=== PATIENT | female | born 1950 | race Caucasian/White ===

== ENCOUNTER → 2023-09-07 09:13 | Outpatient (REF) | payer MEDICARE, OTHER, SELFPAY | LOC: HWRAD 09:13 | PROVIDERS: ATTENDING PHYSICIAN Obstetrics & Gynecology; FAMILY PHYSICIAN Family Medicine | DX: Z12.31 Encounter for screening mammogram for malignant neoplasm of breast (principal); M85.89 Other specified disorders of bone density and structure, multiple sites | CPT/HCPCS: 77063; 77067; 77080 ==

== ENCOUNTER 2023-09-26 05:30 | Emergency (ER) | payer MEDICARE, OTHER, SELFPAY ==
[2023-09-26 05:35] VITALS: BP 182/94
--- NOTE | 2023-09-26 06:21 | ED.GENMED ---
History of Present Illness
General
Chief Complaint: Urinary Symptoms
Source: patient
Exam Limitations: none
Time Seen by Provider: 09/26/23 06:15
Travel History
Have you had any contact with someone who has COVID-19?: No
Do you have any symptoms of coronavirus? Fever > 100 degrees, chills, cough, shortness of breath, sore throat, loss of taste or smell, muscle aches, or headache?: No
History of Present Illness
History of Present Illness:
See MDM
Past History
Past History
ED Past Medical History: HTN, Hypercholesterolemia and Psychiatric (anxiety)
ED Past Surgical History: Cholecystectomy and Gynecological (hyster)
Social History
Tobacco: Non-smoker
Alcohol: None
Personal:
Living: with family
Family History
Family History: Hypertension
Phy Exam
Physical Exam
Physical Exam:
See MDM
Course
Orders/Labs/Results
Orders:
Orders
09/26/23 06:11
Urinalysis Reflex To Culture Urgent
Date Specimen was Collected: 09/26/23
Time Specimen was Collected: 05:53
Urine Microscopic Reflex Cult Urgent
Urine Culture Urgent
JANE Source: U
Specimen Description:
Date Specimen was Collected: 09/26/23
Time Specimen was Collected: 05:53
09/26/23 06:47
Ciprofloxacin HCl [Cipro] 500 mg PO ONCE ONE
Abnormal Lab Results
09/26/23
06:11
Ur Occult Blood Reflex 4+ A
(Negative)
Leukocyte Esterase Rfl 2+ A
(Negative)
Urine Albumin (Reflex) 1+ A
(Neg - Trace)
Vital Signs
Initial and Last Documented VS:
Initial Vital Signs
Temp Pulse Resp BP Pulse Ox
97.8 F 69 19 182/94 98
09/26/23 05:35 09/26/23 05:35 09/26/23 05:35 09/26/23 05:35 09/26/23 05:35
Last Documented Vital Signs
Temp Pulse Resp BP Pulse Ox
97.8 F 69 19 182/94 98
09/26/23 05:35 09/26/23 05:35 09/26/23 05:35 09/26/23 05:35 09/26/23 05:35
MDM/Problems Addressed
Differential Diagnosis Includes:
HPI and MDM Narrative:
73-year-old female presenting with increased urinary frequency and burning since yesterday. She believes she has a urinary tract infection
Patient denies abdominal pain or fevers
She has tried Azo [id number] to help with symptoms but they have persisted
Physical exam
General: Well appearing and non-toxic
HEENT: protecting airway
Neck: appears supple
CV: No evidence of cyanosis
Resp: No accessory muscle use
Abd: Non-distended. Soft and nontender
Extremities: No deformities
Neuro: alert
Psych: Normal affect
Skin: Intact
Problems Addressed including Acute and Chronic Conditions affecting care:
1. Increased urinary frequency
Acuity: acute
Prognosis: stable
Details: Will obtain urinalysis looking for evidence of UTI urinary tract
Updates
Given the hematuria and leuk esterase, will start ciprofloxacin. Discussed follow-up with PCP for repeat urinalysis to confirm resolution of hematuria
Differential Diagnosis (but not limited to): urinary tract infection, interstitial cystitis
Drug therapy (if applicable): OTC meds, please see d/c instruction regarding Rx drugs
Amount and/or Complexity of Data Reviewed
Clinical info obtained from: Patient
External data reviewed: N/A
Labs I independently reviewed (but not limited to): Urinalysis
Radiology: N/A
Pulse Ox: not hypoxic
EKG independently reviewed: N/A
Band Tacker: N/A
Critical Care: N/A
Risk of Complication:
Social Determinants of health: Good social support
Discussed with other providers: N/A
Escalation of Care includes Admit/Obs: After being observed in the Emergency Department, pt stable for discharge.
Occasional wrong word or 'sound a like' substitutions may have occurred due to the inherent limitations of voice recognition software. Read the chart carefully and recognize, using context, where substitutions have occurred.
*Critical Care Note
Total Time (30-74mins, 75-104mins- exclusive of procedures): Not Applicable
ED Attending Note
-
Portions of this chart may have been created with voice recognition software.� Occasional wrong word or��sound alike� substitutions may have occurred due to the inherent limitations of voice recognition software.
Discharge Plan
Departure
Patient Disposition: Home (Routine Discharge)
Date of Disposition: 09/26/23
Time of Disposition: 06:50
Patient with high blood pressure during this ER visit?: Yes
Discharge Problem:
Hematuria, Acute UTI
Instructions: Urinary Tract Infection, Adult (DC), Blood in the Urine (Hematuria), Adult (DC), BLOOD PRESSURE
Prescriptions:
New
ciprofloxacin HCl 500 mg Tablet
500 mg PO BID Qty: 10 0RF
No Action
cholecalciferol (vitamin D3) 1,000 UNITS tablet
2,000 units PO DAILY Qty: 28 0RF
losartan 50 mg Tablet
50 mg PO BID
famotidine [Pepcid AC] 10 mg Tablet
10 mg PO PRN PRN (Reason: GERD)
amlodipine 5 mg Tablet
5 mg PO 1700
Rx Instructions:
at 1700 daily
phenazopyridine 95 mg Tablet
95 mg PO BID
simvastatin 5 mg Tablet
5 mg PO HS
nystatin [Nyamyc] 100,000 unit/gram Powder
1 applic TOPICAL BID
clonazepam 0.125 mg Tablet,Disintegrating
0.125 mg PO PRN PRN (Reason: sleep)
Saccharomyces boulardii [Florastor] 250 mg Capsule
250 mg PO DAILY
coenzyme Q10 [Co Q-10] 200 mg Capsule
200 mg PO DAILY
hydrochlorothiazide 12.5 mg Tablet
12.5 mg PO DAILY
icosapent ethyl [Vascepa] 1 gram Capsule
1 g PO DAILY
Kids Multivitamin Complete 18 mg iron Tablet,Chewable
1 tab PO DAILY
famotidine 20 MG tablet
20 mg PO PRN PRN (Reason: GERD)
Rx Instructions:
Take 20 mg twice a day for 14 days
Renew Life Probiotic
1 cap PO HS
Ultimate Eye Support
1 cap PO DAILY
acetaminophen 325 mg Tablet
650 mg PO Q4HPRN PRN (Reason: mild pain) Qty: 60 0RF
docusate sodium 100 mg Capsule
100 mg PO BID Qty: 60 0RF
simethicone 80 mg Tablet,Chewable
80 mg PO Q6HPRN PRN (Reason: gas distention) Qty: 20 0RF
oxycodone 5 mg Tablet
5 mg PO Q4HPRN PRN (Reason: severe pain when tolerating PO) Qty: 10 0RF
Referrals:
Yesenia Pleitez DO [Family Provider] -
Activity Restrictions/Additional Instructions:
Please return for any worsening symptoms.
You may return at any time if you have further concerns.
Please follow up with your doctor at the first available appointment, preferably this week. Please have your urine rechecked after symptoms resolved to reassess the blood in your urine.
Thank you for choosing [facility].
Interventions
Interventions:
*Risk Screen - Suicide Last Done: 09/26/23 05:35
*General Assessment Last Done: 09/26/23 05:35
*Neglect/Abuse Screening Last Done: 09/26/23 05:35
*ED COVID-19 Vaccine History Last Done: 09/26/23 05:35
Discharge Date and Time
Print Language: WELSH
[2023-09-26 06:37] LABS: Urine Albumin 1+ (Neg - Trace); Urine Bilirubin Negative (Negative); Urine Character Slightly Cloudy (Clear); Urine Glucose Negative (Negative); Urine Ketone Negative (Negative); Urine Leukocyte 2+ (Negative); Urine Nitrite Negative (Negative); Urine Occult Blood 4+ (Negative); Urine Urobilinogen Negative (Neg - 1+); Urine pH 6.5 (5.0-9.0)
[2023-09-26 06:42] LABS: Urine Color Pink
[2023-09-26] MEDS: CIPRO 500 MG PO (06:54)
[2023-09-26 07:52] LABS: Urine White Cell 90-100 /HPF (0-5)
[2023-09-26 07:53] LABS: Urine Bacteria Few (Negative)
== END 2023-09-26 06:56 | disposition home or self-care (01) ==
LOC: EMR 05:30
PROVIDERS: Emergency Medicine; EMERGENCY PHYSICIAN Student in an Organized Health Care Education/Training Program; FAMILY PHYSICIAN Family Medicine
DX: N39.0 Urinary tract infection, site not specified (principal); R31.9 Hematuria, unspecified; I10 Essential (primary) hypertension; E78.00 Pure hypercholesterolemia, unspecified; F41.9 Anxiety disorder, unspecified; Z82.49 Family history of ischemic heart disease and other diseases of the circulatory system; Z90.49 Acquired absence of other specified parts of digestive tract
CPT/HCPCS: 99282; 81003; 81015; 87086

== ENCOUNTER 2023-09-28 16:34 | Emergency (ER) | payer MEDICARE, OTHER, SELFPAY ==
[2023-09-28 16:42] VITALS: BP 156/99
[2023-09-28 17:04] LABS: % Basophils 0.9 % (0-2); % Eosinophils 1.1 % (0-6); % Immature Granulocytes 0.5 % (0-0.5); % Lymphocytes 21.4 % (20.5-51.1); % Monocytes 9.8 % (1.7-9.3); % Neutrophils 66.3 % (42.2-75.2); Absolute Basophils 0.1 10^3/uL (0-0.2); Absolute Eosinophils 0.1 10^3/uL (0-0.7); Absolute Lymphocytes 1.2 10^3/uL (1.2-3.4); Absolute Monocytes 0.6 10^3/uL (0.1-0.6); Absolute Neutrophils 3.8 10^3/uL (1.4-6.5); Hematocrit 39.7 % (37.0-47.0); Hemoglobin 13.9 g/dL (12.0-16.0); Mean Corpuscular Hgb 30.3 pg (27.0-31.0); Mean Corpuscular Volume 86.7 fL (81.0-99.0); Mean Platelet Volume 9.3 fL (7.4-10.4); Nucleated Red Blood Cells % 0 %; Platelet Count 233 10^3/uL (130-400); Red Blood Cell Count 4.58 10^6/uL (4.20-5.40); Red Cell Dist. Width 12.7 % (11.5-14.5); White Blood Cell Count 5.7 10^3/uL (4.8-10.8)
[2023-09-28 17:42] LABS: ALT (SGPT) 33 U/L (0-35); AST (SGOT) 36 U/L (14-36); Albumin 4.3 g/dl (3.5-5.0); Alkaline Phosphatase 83 U/L (38-126); Blood Urea Nitrogen 16 mg/dl (7-17); Calcium 10.4 mg/dl (8.4-10.2); Carbon Dioxide 31 mmol/L (22-30); Chloride 100 mmol/L (98-107); Glucose 126 mg/dl (70-99); Potassium 4.7 mmol/L (3.5-5.1); Sodium 137 mmol/L (135-145); Total Bilirubin 0.5 mg/dl (0.2-1.3); Total Protein 6.7 g/dl (6.3-8.2); eGFR > 60.00
--- NOTE | 2023-09-28 18:54 | ED.GENMED ---
History of Present Illness
General
Chief Complaint: Esophageal Problem
Source: patient
Time Seen by Provider: 09/28/23 18:39
Travel History
Have you had any contact with someone who has COVID-19?: No
Do you have any symptoms of coronavirus? Fever > 100 degrees, chills, cough, shortness of breath, sore throat, loss of taste or smell, muscle aches, or headache?: No
History of Present Illness
History of Present Illness:
73-year-old female presents to the emergency room complaining of food impaction. Patient was eating a carrot when it felt like it became stuck. She tried to wash down with seltzer water which came back up. She became quite anxious that she might
choke. She called her daughter who came and picked her up and brought her to mention. In the interim she did regurgitate pieces of carrot. Currently she is able to tolerate her own secretions. She drank some water without difficulty. She does
continue to have a foreign body sensation in her throat. She had 1 episode of food becoming stuck several years ago. She does have history of heartburn. She does take Nexium. She has not been seen by a imager in the past.
Past History
Past History
ED Past Medical History: HTN, Hypercholesterolemia and Psychiatric (anxiety)
ED Past Surgical History: Cholecystectomy and Gynecological (hyster)
Social History
Tobacco: Non-smoker
Alcohol: None
Personal:
Living: with family
Family History
Family History: Hypertension
Phy Exam
Physical Exam
Physical Exam:
General: Awake, Alert, Oriented X3. No acute distress.
Vitals: unremarkable
Head: Atraumatic
Eyes: Pupils equal, EOMI
Throat: Airway intact, no exudates
Neck: Trachea midline
Lungs: Clear and equal b/l
Heart: Regular rate, no murmurs
Abd: Soft, Nontender, No pulsatile mass
Neuro: Nonfocal
Skin: Warm, dry, no rash
Extremities: pulses equal b/l, no edema
Course
Orders/Labs/Results
Orders:
Orders
09/28/23 16:57
CMP [Comprehensive Metabolic Panel] Urgent
Complete Blood Count/With Diff Urgent
09/28/23 18:54
Mag Hydrox/Al Hydrox/Simeth [Maalox] 30 ml Phenobarb/Hyoscy/Atropine/Scop [] 10 ml PO NOW
09/28/23 19:00
Mag Hydrox/Al Hydrox/Simeth [Maalox] 30 ml .ROUTE .STK-MED ONE
Phenobarb/Hyoscy/Atropine/Scop [] 10 ml .ROUTE .STK-MED ONE
Abnormal Lab Results
09/28/23
16:57
Monocytes % 9.8 H %
(1.7-9.3)
Carbon Dioxide 31 H mmol/L
(22-30)
Glucose 126 H mg/dl
(70-99)
Calcium 10.4 H mg/dl
(8.4-10.2)
09/28/23 16:57
09/28/23 16:57
Vital Signs
Initial and Last Documented VS:
Initial Vital Signs
Temp Pulse Resp BP Pulse Ox
98.3 F 63 20 156/99 98
09/28/23 16:42 09/28/23 16:42 09/28/23 16:42 09/28/23 16:42 09/28/23 16:42
Last Documented Vital Signs
Temp Pulse Resp BP Pulse Ox
98.3 F 63 20 156/99 98
09/28/23 16:42 09/28/23 16:42 09/28/23 16:42 09/28/23 16:42 09/28/23 16:42
MDM/Problems Addressed
Differential Diagnosis Includes:
Esophageal food impaction, esophageal abrasion
MDM/Problems Addressed:
Patient likely had a complete esophageal obstruction initially. She is evidently cleared this. She is now tolerating her secretions and liquid intake. She is disturbed by the foreign body sensation. Will treat this with a dose of Maalox and
.
*Pulse Oximetry
Patient hypoxic: no
*Critical Care Note
Total Time (30-74mins, 75-104mins- exclusive of procedures): Not Applicable
ED Attending Note
-
Portions of this chart may have been created with voice recognition software.� Occasional wrong word or��sound alike� substitutions may have occurred due to the inherent limitations of voice recognition software.
Discharge Plan
Departure
Patient Disposition: Home (Routine Discharge)
Date of Disposition: 09/28/23
Time of Disposition: 19:32
Patient with high blood pressure during this ER visit?: Yes
Condition: Good
Discharge Problem:
Obstruction of esophagus due to food impaction
Instructions: Food Obstruction
Prescriptions:
No Action
cholecalciferol (vitamin D3) 1,000 UNITS tablet
2,000 units PO DAILY Qty: 28 0RF
losartan 50 mg Tablet
50 mg PO BID
famotidine [Pepcid AC] 10 mg Tablet
10 mg PO PRN PRN (Reason: GERD)
amlodipine 5 mg Tablet
5 mg PO 1700
Rx Instructions:
at 1700 daily
phenazopyridine 95 mg Tablet
95 mg PO BID
simvastatin 5 mg Tablet
5 mg PO HS
nystatin [Nyamyc] 100,000 unit/gram Powder
1 applic TOPICAL BID
clonazepam 0.125 mg Tablet,Disintegrating
0.125 mg PO PRN PRN (Reason: sleep)
Saccharomyces boulardii [Florastor] 250 mg Capsule
250 mg PO DAILY
coenzyme Q10 [Co Q-10] 200 mg Capsule
200 mg PO DAILY
hydrochlorothiazide 12.5 mg Tablet
12.5 mg PO DAILY
icosapent ethyl [Vascepa] 1 gram Capsule
1 g PO DAILY
Kids Multivitamin Complete 18 mg iron Tablet,Chewable
1 tab PO DAILY
famotidine 20 MG tablet
20 mg PO PRN PRN (Reason: GERD)
Rx Instructions:
Take 20 mg twice a day for 14 days
Renew Life Probiotic
1 cap PO HS
Ultimate Eye Support
1 cap PO DAILY
acetaminophen 325 mg Tablet
650 mg PO Q4HPRN PRN (Reason: mild pain) Qty: 60 0RF
docusate sodium 100 mg Capsule
100 mg PO BID Qty: 60 0RF
simethicone 80 mg Tablet,Chewable
80 mg PO Q6HPRN PRN (Reason: gas distention) Qty: 20 0RF
oxycodone 5 mg Tablet
5 mg PO Q4HPRN PRN (Reason: severe pain when tolerating PO) Qty: 10 0RF
ciprofloxacin HCl 500 mg Tablet
500 mg PO BID Qty: 10 0RF
Referrals:
Lorraine Rust MD [Active] -
Interventions
Interventions:
*Risk Screen - Suicide Last Done: 09/28/23 16:42
*General Assessment Last Done: 09/28/23 16:42
*Neglect/Abuse Screening Last Done: 09/28/23 16:42
ED- Fall Risk Assessment Last Done: 09/28/23 19:27
*ED COVID-19 Vaccine History Last Done: 09/28/23 20:00
*Nursing Disposition Last Done: 09/28/23 20:00
EV-Bmlcqu-Ogzyqgmqhz Assessment Last Done: 09/28/23 19:27
ED-EENT Assessment Last Done: 09/28/23 19:27
Discharge Date and Time
Discharge Date/Time: 09/28/23 20:28
Print Language: HUNGARIAN
[2023-09-28] MEDS: MAALOX 40 PO (19:03)
== END 2023-09-28 20:28 | disposition home or self-care (01) ==
LOC: EMR 16:34
PROVIDERS: Student in an Organized Health Care Education/Training Program; EMERGENCY PHYSICIAN Emergency Medicine; FAMILY PHYSICIAN Family Medicine
DX: K22.2 Esophageal obstruction (principal); K30 Functional dyspepsia; I10 Essential (primary) hypertension; E78.00 Pure hypercholesterolemia, unspecified; F41.9 Anxiety disorder, unspecified; Z79.899 Other long term (current) drug therapy; Z90.49 Acquired absence of other specified parts of digestive tract; Z88.0 Allergy status to penicillin; Z88.8 Allergy status to other drugs, medicaments and biological substances
CPT/HCPCS: 99283; 80053; 85025

== ENCOUNTER 2024-01-13 17:58 | Emergency (ER) | payer MEDICARE, OTHER, SELFPAY ==
[2024-01-13 18:05] VITALS: BP 151/81
--- NOTE | 2024-01-13 19:31 | ED.GENMED ---
History of Present Illness
General
Chief Complaint: Fall
Source: patient
Time Seen by Provider: 01/13/24 18:43
History of Present Illness
History of Present Illness:
73-year-old female presents emergency department after suffering a fall earlier today at approximately 2 PM. As per daughters who are at bedside, patient has a history of balance 'problems'. She was reportedly opening a door for her and
lost her balance, falling backwards onto the walker and then onto an air purifier before hitting the ground. She takes aspirin, otherwise does not take antiplatelet/anticoagulation agents. There was no reported loss of consciousness. However, she
insisted on laying on the ground and not getting up for at least an hour or 2 due to pain that she reported in her 'tailbone' and then less so in the neck area. Medics were called. Patient was reporting pain upon transport onto the gurney. Here
in the emergency department, the patient denies any pain. She denies headache, neck pain, numbness, tingling, focal weakness, chest pain, shortness of breath, change in vision, or other complaints.
Past History
Past History
ED Past Medical History: HTN, Hypercholesterolemia and Psychiatric (anxiety)
ED Past Surgical History: Cholecystectomy and Gynecological (hyster)
Social History
Tobacco: Non-smoker
Alcohol: None
Personal:
Living: with family
Family History
Family History: Hypertension
Phy Exam
Physical Exam
Physical Exam:
GENERAL: Alert , in no apparent distress
EYE: pupils equal and reactive,EOMI, no nystagmus, no photophobia
NECK: Supple, no significant adenopathy, no ttp midine.
ENT: o/p clr, mmm, no signs head/facial inj, no battl,e no raccon, etc.
CARDIAC: Regular rate and rhythm .
LUNGS: Clear breath sounds bilaterally, no acute respiratory distress, no wheezes/rales/rhonchi, cw without bruising
ABDOMEN: Soft, without focal tenderness, no r/g, no cvat
NEUROLOGICAL: Alert and oriented to person,place but not time, can identify daughters at bedside by name, no focal neuro deficits
SKIN: Warm and dry, skin intact.
MUSCULOSKELETAL: No edema, well perfused. No ttp of pelvis/ue/le. FROM of hips without pain.
PSYCH: Normal and appropriate interaction.
BACK: nontender throughout to palpation, no bruisinh
Course
Orders/Labs/Results
Orders:
Orders
01/13/24 18:08
CR Facial Bones Comp Min 3 Vw* Urgent
Comment:
Reason For Exam: injury
Vital Signs
Initial and Last Documented VS:
Initial Vital Signs
Temp Pulse Resp BP Pulse Ox
98.2 F 74 18 151/81 96
01/13/24 18:05 01/13/24 18:05 01/13/24 18:05 01/13/24 18:05 01/13/24 18:05
Last Documented Vital Signs
Temp Pulse Resp BP Pulse Ox
98.2 F 74 18 151/81 96
01/13/24 18:05 01/13/24 18:05 01/13/24 18:05 01/13/24 18:05 01/13/24 18:05
Update Note
Update Note:
Patient presents to the Emergency Department with ____fall
Number and Complexity of Problems Addressed at the Encounter
� Chronic conditions affecting care:
� Acute Exacerbation and/or Progression of Chronic Illness:
� Differential Diagnosis includes:but not limited to coccyx fx or bruise, cervical fx, intracranial bleed/subdural, etc. etc.
Amount and/or Complexity of Data to be Reviewed and Analyzed
� I performed an independent evaluation of and my interpretation is:
EKG:
CT:
Xrays:
Laboratory Studies:
Other:
� Review of other/old records reveals:
� Clinical information was obtained by an independent historian:marjorie Huang at bedside
� Prescriptions/Medications Considered but not given:
� Further testing considered but not performed:
Risk of Complications and/or Morbidity or Mortality of Patient Management
� Social determinants of health affecting care:
� Discussion with other providers (PCP, Hospitalists, Consultants, etc):
� Escalation of care including admission/observation vs risk of discharge considered:
ED Attending Note
-
Portions of this chart may have been created with voice recognition software.� Occasional wrong word or��sound alike� substitutions may have occurred due to the inherent limitations of voice recognition software.
Discharge Plan
Departure
Prescriptions:
No Action
cholecalciferol (vitamin D3) 1,000 UNITS tablet
2,000 units PO DAILY Qty: 28 0RF
losartan 50 mg Tablet
50 mg PO BID
famotidine [Pepcid AC] 10 mg Tablet
10 mg PO PRN PRN (Reason: GERD)
amlodipine 5 mg Tablet
5 mg PO 1700
Rx Instructions:
at 1700 daily
phenazopyridine 95 mg Tablet
95 mg PO BID
simvastatin 5 mg Tablet
5 mg PO HS
nystatin [Nyamyc] 100,000 unit/gram Powder
1 applic TOPICAL BID
clonazepam 0.125 mg Tablet,Disintegrating
0.125 mg PO PRN PRN (Reason: sleep)
Saccharomyces boulardii [Florastor] 250 mg Capsule
250 mg PO DAILY
coenzyme Q10 [Co Q-10] 200 mg Capsule
200 mg PO DAILY
hydrochlorothiazide 12.5 mg Tablet
12.5 mg PO DAILY
icosapent ethyl [Vascepa] 1 gram Capsule
1 g PO DAILY
Kids Multivitamin Complete 18 mg iron Tablet,Chewable
1 tab PO DAILY
famotidine 20 MG tablet
20 mg PO PRN PRN (Reason: GERD)
Rx Instructions:
Take 20 mg twice a day for 14 days
Renew Life Probiotic
1 cap PO HS
Ultimate Eye Support
1 cap PO DAILY
acetaminophen 325 mg Tablet
650 mg PO Q4HPRN PRN (Reason: mild pain) Qty: 60 0RF
docusate sodium 100 mg Capsule
100 mg PO BID Qty: 60 0RF
simethicone 80 mg Tablet,Chewable
80 mg PO Q6HPRN PRN (Reason: gas distention) Qty: 20 0RF
oxycodone 5 mg Tablet
5 mg PO Q4HPRN PRN (Reason: severe pain when tolerating PO) Qty: 10 0RF
ciprofloxacin HCl 500 mg Tablet
500 mg PO BID Qty: 10 0RF
Referrals:
Yesenia Pleitez DO [Family Provider] -
Interventions
Interventions:
*Risk Screen - Suicide Last Done: 01/13/24 18:05
*General Assessment Last Done: 01/13/24 18:05
*Neglect/Abuse Screening Last Done: 01/13/24 18:33
ED- Fall Risk Assessment Last Done: 01/13/24 18:33
*ED COVID-19 Vaccine History Last Done: 01/13/24 18:33
ED-Musculoskeletal Assessment Last Done: 01/13/24 18:33
ED- Neurological Assessment Last Done: 01/13/24 18:33
ED-Skin Assessment Last Done: 01/13/24 18:33
Discharge Date and Time
Print Language: ANGOLAN
--- NOTE | 2024-01-13 19:46 | ED.GENMED ---
History of Present Illness
General
Chief Complaint: Fall
Source: patient and family
Time Seen by Provider: 01/13/24 18:43
History of Present Illness
History of Present Illness:
73 yr old female presents to ED s/p fall. She was walking in new shoes from trunk of car towards door and shoe got caught, causing her to fall against car with R side of body. She then fell to ground. No head inj, no loc, no headache. She reports
pain at R lat thigh area, and less so at jaw area. No neck pain/visula changes/cp/sob/abd pain/back pain/numb/tingling/weakness or other comlnts. Pt not on thineers.
Past History
Past History
ED Past Medical History: HTN, Hypercholesterolemia and Psychiatric (anxiety)
ED Past Surgical History: Cholecystectomy, Gynecological (hyster) and Orthopedic
Social History
Tobacco: Non-smoker
Alcohol: None
Drug: None
Personal:
Living: alone
Employment: Employed
Family History
Family History: Hypertension
Phy Exam
Physical Exam
Physical Exam:
GENERAL: Alert , in no apparent distress
EYE: pupils equal and reactive ,no photophobia,
NECK: Supple, no significant adenopathy.
ENT: o/p clr, mmm, no signs head/facial injury on exam, no trismus/drool
CARDIAC: Regular rate and rhythm .
LUNGS: Clear breath sounds bilaterally, no acute respiratory distress, no wheezes/rales/rhonchi
ABDOMEN: Soft, without focal tenderness, no r/g, no cvat
NEUROLOGICAL: Alert and oriented, no focal neuro deficits, gait nl
SKIN: Warm and dry, skin intact.
MUSCULOSKELETAL: No edema bu for st contusion noted R lat thigh without abrasion/bleed/bony ttp, well perfused.
PSYCH: Normal and appropriate interaction.
Course
Orders/Labs/Results
Orders:
Orders
01/13/24 18:08
CR Facial Bones Comp Min 3 Vw* Urgent
Comment:
Reason For Exam: injury
01/13/24 19:46
Hip, Right 2-3 Views [CR Hip - RT w/wo Pel 2-3 Vw*] Urgent
Comment:
Reason For Exam: fall
Include a pelvis x-ray?: Yes
01/13/24 19:56
Acetaminophen [Tylenol] 1,000 mg PO NOW STA
Vital Signs
Initial and Last Documented VS:
Initial Vital Signs
Temp Pulse Resp BP Pulse Ox
98.2 F 74 18 151/81 96
01/13/24 18:05 01/13/24 18:05 01/13/24 18:05 01/13/24 18:05 01/13/24 18:05
Last Documented Vital Signs
Temp Pulse Resp BP Pulse Ox
98.2 F 74 18 151/81 96
01/13/24 18:05 01/13/24 18:05 01/13/24 18:05 01/13/24 18:05 01/13/24 18:05
Update Note
Update Note:
Patient presents to the Emergency Department with ___FALL
Number and Complexity of Problems Addressed at the Encounter
� Chronic conditions affecting care:
� Acute Exacerbation and/or Progression of Chronic Illness:
� Differential Diagnosis includes:but not limited to hip fx, pelvic fx, contusion, jaw dislocation, etc
Amount and/or Complexity of Data to be Reviewed and Analyzed
� I performed an independent evaluation of and my interpretation is:
EKG:
CT:
Xrays: mandible and hip neg
Laboratory Studies:
Other:
� Review of other/old records reveals:
� Clinical information was obtained by an independent historian:daughter who is bedside
� Prescriptions/Medications Considered but not given:
� Further testing considered but not performed:
Risk of Complications and/or Morbidity or Mortality of Patient Management
� Social determinants of health affecting care:
� Discussion with other providers (PCP, Hospitalists, Consultants, etc):
� Escalation of care including admission/observation vs risk of discharge considered:pt ambulates without difficulty. given apap and ice here, aware of xrays neg, import of f/u and reasons to rted.
ED Attending Note
-
Portions of this chart may have been created with voice recognition software.� Occasional wrong word or��sound alike� substitutions may have occurred due to the inherent limitations of voice recognition software.
Discharge Plan
Departure
Patient Disposition: Home (Routine Discharge)
Date of Disposition: 01/13/24
Time of Disposition: 21:10
Patient with high blood pressure during this ER visit?: Yes
Condition: Good
Discharge Problem:
Contusion, Fall
Instructions: Contusion (DC), BLOOD PRESSURE
Prescriptions:
No Action
cholecalciferol (vitamin D3) 1,000 UNITS tablet
2,000 units PO DAILY Qty: 28 0RF
losartan 50 mg Tablet
50 mg PO BID
famotidine [Pepcid AC] 10 mg Tablet
10 mg PO PRN PRN (Reason: GERD)
amlodipine 5 mg Tablet
5 mg PO 1700
Rx Instructions:
at 1700 daily
phenazopyridine 95 mg Tablet
95 mg PO BID
simvastatin 5 mg Tablet
5 mg PO HS
nystatin [Nyamyc] 100,000 unit/gram Powder
1 applic TOPICAL BID
clonazepam 0.125 mg Tablet,Disintegrating
0.125 mg PO PRN PRN (Reason: sleep)
Saccharomyces boulardii [Florastor] 250 mg Capsule
250 mg PO DAILY
coenzyme Q10 [Co Q-10] 200 mg Capsule
200 mg PO DAILY
hydrochlorothiazide 12.5 mg Tablet
12.5 mg PO DAILY
icosapent ethyl [Vascepa] 1 gram Capsule
1 g PO DAILY
Kids Multivitamin Complete 18 mg iron Tablet,Chewable
1 tab PO DAILY
famotidine 20 MG tablet
20 mg PO PRN PRN (Reason: GERD)
Rx Instructions:
Take 20 mg twice a day for 14 days
Renew Life Probiotic
1 cap PO HS
Ultimate Eye Support
1 cap PO DAILY
acetaminophen 325 mg Tablet
650 mg PO Q4HPRN PRN (Reason: mild pain) Qty: 60 0RF
docusate sodium 100 mg Capsule
100 mg PO BID Qty: 60 0RF
simethicone 80 mg Tablet,Chewable
80 mg PO Q6HPRN PRN (Reason: gas distention) Qty: 20 0RF
oxycodone 5 mg Tablet
5 mg PO Q4HPRN PRN (Reason: severe pain when tolerating PO) Qty: 10 0RF
ciprofloxacin HCl 500 mg Tablet
500 mg PO BID Qty: 10 0RF
Referrals:
Yesenia Pleitez DO [Family Provider] - Next open appointment
Activity Restrictions/Additional Instructions:
IF YOU DEVELOP NECK PAIN, NUMBNESS, TINGLING, WEAKNESS, CHEST PAIN, TROUBLE BREATHING, ABDOMINAL PAIN, FEVER, SEVERE HEADACHE, VOMITING, OR OTHER WORRISOME SIGNS, GO TO THE ER IMMEDIATELY!
Interventions
Interventions:
*Risk Screen - Suicide Last Done: 01/13/24 18:05
*General Assessment Last Done: 01/13/24 18:05
*Neglect/Abuse Screening Last Done: 01/13/24 18:33
ED- Fall Risk Assessment Last Done: 01/13/24 18:33
*ED COVID-19 Vaccine History Last Done: 01/13/24 18:33
ED-Musculoskeletal Assessment Last Done: 01/13/24 18:33
ED- Neurological Assessment Last Done: 01/13/24 18:33
ED-Skin Assessment Last Done: 01/13/24 18:33
Discharge Date and Time
Print Language: IRANIAN
[2024-01-13 20:01] VITALS: BMI 27.5
[2024-01-13] MEDS: TYLENOL 1000 MG PO (20:02)
== END 2024-01-13 21:54 | disposition home or self-care (01) ==
LOC: EMR 17:58
PROVIDERS: EMERGENCY PHYSICIAN Emergency Medicine; FAMILY PHYSICIAN Family Medicine
DX: S70.11XA Contusion of right thigh, initial encounter (principal); R68.84 Jaw pain; W01.198A Fall on same level from slipping, tripping and stumbling with subsequent striking against other object, initial encounter; Y93.01 Activity, walking, marching and hiking; E78.00 Pure hypercholesterolemia, unspecified; I10 Essential (primary) hypertension; F41.9 Anxiety disorder, unspecified; Z90.49 Acquired absence of other specified parts of digestive tract
CPT/HCPCS: 99284; 70150; 73502

== ENCOUNTER 2024-07-02 03:05 | Emergency (ER) | payer MEDICARE, OTHER, SELFPAY ==
[2024-07-02 03:06] VITALS: BP 160/78
[2024-07-02 03:13] VITALS: BMI 27.1
[2024-07-02] MEDS: Pyridium 100 MG PO (03:39)
[2024-07-02 03:43] LABS: Urine Albumin 3+ (Neg - Trace); Urine Bilirubin Negative (Negative); Urine Character Cloudy (Clear); Urine Color Brown; Urine Glucose Negative (Negative); Urine Ketone 3+ (Negative); Urine Leukocyte 3+ (Negative); Urine Nitrite Negative (Negative); Urine Occult Blood 4+ (Negative); Urine Urobilinogen Negative (Neg - 1+)
--- NOTE | 2024-07-02 03:50 | ED.GENMED ---
History of Present Illness
General
Chief Complaint: Urinary Symptoms
Source: patient
Exam Limitations: none
Time Seen by Provider: 07/02/24 03:25
Nursing documentation reviewed up to this point in time: agreed with
History of Present Illness
History of Present Illness:
Pleasant 74-year-old female presents to the emergency department with dysuria. Her son, family doctor called and Macrobid. She picked up the antibiotics and had 1 dose. Tonight she had some blood-tinged urine so she called 911 and came in for
evaluation. Denies fever, chills, chest pain, or shortness of breath. She denies back pain or abdominal pain. She states that initially she did have some suprapubic pain, but that has since resolved. Denies any vaginal symptoms.
Past History
Past History
ED Past Medical History: HTN, Hypercholesterolemia and Psychiatric (anxiety)
ED Past Surgical History: Cholecystectomy, Gynecological (hyster) and Orthopedic
Social History
Tobacco: Non-smoker
Alcohol: None
Drug: None
Personal:
Living: alone
Employment: Employed
Family History
Family History: Hypertension
Phy Exam
General Physical Exam
General Presentation: well appearing and no apparent distress
General age: appears stated age
General Skin: warm and dry
General Habitus: elderly
General Mental: alert
Pulmonary Exam
Pulmonary Exam: lungs clear and no respiratory distress
Gastrointestinal Exam
Gastrointestinal Exam: normal bowel sounds, non tender, soft, no organomegaly, non distended and other (No CVA tenderness)
Neurological Exam
Neurological Exam: alert and oriented x3
Skin Exam
Skin Exam: normal color and warm/dry
Psychiatric Exam
Psychiatric Exam: normal mood/affect
Course
Orders/Labs/Results
Orders:
Orders
07/02/24 03:21
Urinalysis Reflex To Culture Urgent
Date Specimen was Collected: 07/02/24
Time Specimen was Collected: 03:15
Urine Microscopic Reflex Cult Urgent
Urine Culture Urgent
JANE Source: U
Specimen Description:
Date Specimen was Collected: 07/02/24
Time Specimen was Collected: 03:15
07/02/24 03:28
Phenazopyridine HCl [Pyridium] 100 mg PO NOW STA
Abnormal Lab Results
07/02/24
03:21
Urine Ketones 3+ A
(Negative)
Ur Occult Blood Reflex 4+ A
(Negative)
Leukocyte Esterase Rfl 3+ A
(Negative)
Urine RBC >100 A /HPF
(0-2)
Urine WBC (Reflex) >100 A /HPF
(0-5)
Urine Bacteria (Reflex) Many A
(Negative)
Urine Albumin (Reflex) 3+ A
(Neg - Trace)
Vital Signs
Initial and Last Documented VS:
Initial Vital Signs
Temp Pulse Resp BP Pulse Ox
98.2 F 72 16 160/78 97
07/02/24 03:06 07/02/24 03:06 07/02/24 03:06 07/02/24 03:06 07/02/24 03:06
Last Documented Vital Signs
Temp Pulse Resp BP Pulse Ox
98.2 F 72 16 160/78 97
07/02/24 03:06 07/02/24 03:06 07/02/24 03:06 07/02/24 03:06 07/02/24 03:06
*Critical Care Note
Total Time (30-74mins, 75-104mins- exclusive of procedures): Not Applicable
Update Note
Update Note:
Urinalysis shows UTI. Patient was started on Macrobid earlier today. There is no reason to think that Macrobid would not work. Urine cultures were ordered. Patient will get a dose of Pyridium. Follow-up with her family doctor.
ED Attending Note
-
Portions of this chart may have been created with voice recognition software.� Occasional wrong word or��sound alike� substitutions may have occurred due to the inherent limitations of voice recognition software.
Discharge Plan
Departure
Patient Disposition: Home (Routine Discharge)
Date of Disposition: 07/02/24
Time of Disposition: 04:24
Patient with high blood pressure during this ER visit?: Yes
Condition: Good
Discharge Problem:
Acute UTI, Hematuria
Instructions: Urinary Tract Infection, Adult (DC), Blood in the Urine (Hematuria), Adult (DC), BLOOD PRESSURE
Prescriptions:
New
phenazopyridine [Pyridium] 100 mg tablet
100 mg PO TID PRN (Reason: Pain) Qty: 7 0RF
No Action
cholecalciferol (vitamin D3) 1,000 UNITS tablet
2,000 units PO DAILY Qty: 28 0RF
losartan 50 mg Tablet
50 mg PO BID
famotidine [Pepcid AC] 10 mg Tablet
10 mg PO PRN PRN (Reason: GERD)
amlodipine 5 mg Tablet
5 mg PO 1700
Rx Instructions:
at 1700 daily
phenazopyridine 95 mg Tablet
95 mg PO BID
simvastatin 5 mg Tablet
5 mg PO HS
nystatin [Nyamyc] 100,000 unit/gram Powder
1 applic TOPICAL BID
clonazepam 0.125 mg Tablet,Disintegrating
0.125 mg PO PRN PRN (Reason: sleep)
Saccharomyces boulardii [Florastor] 250 mg Capsule
250 mg PO DAILY
coenzyme Q10 [Co Q-10] 200 mg Capsule
200 mg PO DAILY
hydrochlorothiazide 12.5 mg Tablet
12.5 mg PO DAILY
icosapent ethyl [Vascepa] 1 gram Capsule
1 g PO DAILY
Kids Multivitamin Complete 18 mg iron Tablet,Chewable
1 tab PO DAILY
famotidine 20 MG tablet
20 mg PO PRN PRN (Reason: GERD)
Rx Instructions:
Take 20 mg twice a day for 14 days
Renew Life Probiotic
1 cap PO HS
Ultimate Eye Support
1 cap PO DAILY
acetaminophen 325 mg Tablet
650 mg PO Q4HPRN PRN (Reason: mild pain) Qty: 60 0RF
docusate sodium 100 mg Capsule
100 mg PO BID Qty: 60 0RF
simethicone 80 mg Tablet,Chewable
80 mg PO Q6HPRN PRN (Reason: gas distention) Qty: 20 0RF
oxycodone 5 mg Tablet
5 mg PO Q4HPRN PRN (Reason: severe pain when tolerating PO) Qty: 10 0RF
ciprofloxacin HCl 500 mg Tablet
500 mg PO BID Qty: 10 0RF
Referrals:
Yesenia Pleitez DO [Family Provider] -
Activity Restrictions/Additional Instructions:
It was a pleasure meeting you and taking part in your care. We hope for your continued healing and wellness.
Please read discharge instructions in their entirety. However, they are for general education and may not describe your exact diagnosis at discharge. Information on your ER visit and medical conditions were discussed with you along with appropriate
follow up information...
If indicated, please take your medications as instructed and indicated on discharge paperwork.
Please schedule a follow up appointment as directed. Call to schedule an appointment
Please return to the emergency department with ANY change in, persisting, or worsening of symptoms. If any of your symptoms do not improve, or persist, or become more severe within 6-12 hours, please return to the emergency department for further
care.
Please return to the emergency department if you develop a headache, neck pain/stiffness, fever greater than 100.4F, chest pain, shortness of breath, persistent nausea, vomiting, slurred speech, difficulty walking, numbness/tingling, weakness, signs
of infection or any other symptoms that are worrisome to you.
If you have any questions or concerns please do not hesitate to call the Hospital at or E-mail me directly at [email or web address]
Interventions
Interventions:
*Risk Screen - Suicide Last Done: 07/02/24 03:06
*General Assessment Last Done: 07/02/24 03:06
*Neglect/Abuse Screening Last Done: 07/02/24 03:06
*ED COVID-19 Vaccine History Last Done: 07/02/24 03:06
ED-Female Genitourinary Assessment Last Done: 07/02/24 03:18
Discharge Date and Time
Print Language: GERMAN
[2024-07-02 04:21] LABS: Urine Bacteria Many (Negative); Urine Red Blood Cell >100 /HPF (0-2); Urine White Cell >100 /HPF (0-5)
[2024-07-02 04:35] VITALS: BP 125/80
--- NOTE | 2024-07-02 04:46 | EDRN ---
Pt was given discharge instructions by Dr Ayoub. Pt says she does not want to bother her daughter who lives in [place] to pick her up. Pt does not have [employer] apps on her phone and asked if someone could help her set it up so she can
arrange transport home. [address] assisting pt with this request.
== END 2024-07-02 05:00 | disposition home or self-care (01) ==
LOC: EMR 03:05
PROVIDERS: EMERGENCY PHYSICIAN Student in an Organized Health Care Education/Training Program; FAMILY PHYSICIAN Family Medicine
DX: N39.0 Urinary tract infection, site not specified (principal); R31.9 Hematuria, unspecified; I10 Essential (primary) hypertension; E78.00 Pure hypercholesterolemia, unspecified; F41.9 Anxiety disorder, unspecified; Z82.49 Family history of ischemic heart disease and other diseases of the circulatory system; Z90.49 Acquired absence of other specified parts of digestive tract
CPT/HCPCS: 99282; 81003; 81015; 87086

== ENCOUNTER → 2024-09-14 11:16 | Outpatient (REF) | payer MEDICARE, OTHER, SELFPAY | LOC: HWWDC 11:16 | PROVIDERS: ATTENDING PHYSICIAN Obstetrics & Gynecology; FAMILY PHYSICIAN Family Medicine | DX: Z12.31 Encounter for screening mammogram for malignant neoplasm of breast (principal) | CPT/HCPCS: 77063; 77067 ==